=== PATIENT | female | born 1995 | race Caucasian/White ===

== ENCOUNTER 2021-09-04 08:27 | Outpatient (CLI) | payer OTHER | END 2021-09-04 08:28 | disposition home or self-care (01) | LOC: SCSMRI 08:27 | PROVIDERS: ATTEND Orthopaedic Surgery Hand Surgery | DX: S53.441A Ulnar collateral ligament sprain of right elbow, initial encounter (principal); R93.89 Abnormal findings on diagnostic imaging of other specified body structures; N83.202 Unspecified ovarian cyst, left side; N83.292 Other ovarian cyst, left side ==

== ENCOUNTER 2021-09-15 14:55 | Outpatient (CLI) | payer OTHER | END 2021-09-15 14:56 | disposition home or self-care (01) | LOC: TBSIIMAG 14:55 | PROVIDERS: ATTEND Orthopaedic Surgery Hand Surgery | DX: S53.441A Ulnar collateral ligament sprain of right elbow, initial encounter (principal) ==

== ENCOUNTER 2021-10-27 14:31 | Outpatient (CLI) | payer BC ==
[2021-10-27 15:14] LABS: #Basophils 0.1 10x3/uL (0.0-0.2); #Eosinphils 0.1 10x3/uL (0.0-0.5); #Monocytes 0.6 10x3/uL (0.0-1.1); #Neutrophils 6.8 10x3/uL (1.5-8.4); %Basophils 0.8 % (0.0-2.0); %Eosinophils 1.2 % (0.0-6.0); %Lymphocytes 27.4 % (18.0-47.0); %Monocytes 6.1 % (0.0-10.0); %Neutrophils 64.2 % (40.0-75.0); Hemoglobin 13.1 g/dL (12.0-15.5); Mean Corpuscular HGB CONC 33.1 g/dL (32.0-36.0); Mean Corpuscular Hemoglobin 30.8 pg (27.0-33.0); Mean Platelet Volume 9.1 fl (7.4-10.4); Platelet Count 310 10x3/uL (150-450); RBC Distribution Width 11.9 % (11.5-14.5); Red Blood Cell (RBC) Count 4.26 10x6/uL (3.90-5.03); White Blood Cell (WBC) Count 10.5 10x3/uL (3.5-10.5)
[2021-10-28 00:05] LABS: SARS-CoV-2 PCR by NAA Not Detected (NotDetected)
== END 2021-10-27 14:32 | disposition home or self-care (01) ==
LOC: LABBT 14:31
PROVIDERS: ATTEND Orthopaedic Surgery Hand Surgery
DX: Z01.812 Encounter for preprocedural laboratory examination (principal); S63.601A Unspecified sprain of right thumb, initial encounter; Z20.822 Contact with and (suspected) exposure to COVID-19
CPT/HCPCS: 85025; U0003; U0005

== ENCOUNTER 2021-10-30 08:06 | Day surgery (SDC) | payer BC ==
[2021-10-21 10:41] VITALS: BMI 29.0
[2021-10-30] MEDS ORDERED: Midazolam HCl 2 mg/2 ml Vial ONE (09:49)
[2021-10-30] MEDS ORDERED: Betamet Acet/Betamet Na Ph 30 MG/5 ML VIAL ONE (12:11)
[2021-10-30] MEDS ORDERED: Bupivacaine PF 0.5% 30 ML VIAL ONE (12:11)
[2021-10-30] MEDS ORDERED: Bacitracin Zinc Ointment 30 gm TUBE ONE (12:11)
[2021-10-30] MEDS ORDERED: Neomycin-Polymyxin 1 ML AMP ONE (12:11)
[2021-10-30] MEDS ORDERED: Fentanyl 250 MCG/5 ML VIAL ONE (12:12)
[2021-10-30] MEDS ORDERED: Ketorolac Tromethamine 30 MG/ML VIAL ONE (12:44)
[2021-10-30] MEDS ORDERED: Dexamethasone 20 MG/5 ML VIAL ONE (12:44)
[2021-10-30] MEDS ORDERED: PROPOFOL 200 MG/20 ML VIAL ONE (12:44)
[2021-10-30] MEDS ORDERED: Lidocaine 1% PF 5 ML VIAL ONE (12:44)
[2021-10-30] MEDS ORDERED: Ropivacaine 0.5% HCl/PF (150 MG/30 ML VIAL) ONE (12:44)
[2021-10-30] MEDS ORDERED: Ondansetron PF 4 MG/2 ML Vial ONE (12:44)
== END 2021-10-30 15:50 | disposition home or self-care (01) ==
LOC: SDC 08:06
PROVIDERS: ATTEND Orthopaedic Surgery Hand Surgery
PROC: 3E0T3BZ Introduction of Anesthetic Agent into Peripheral Nerves and Plexi, Percutaneous Approach (ICD-10-PCS; principal; 2021-10-30)
PROC: 0LS70ZZ Reposition Right Hand Tendon, Open Approach (ICD-10-PCS; principal; 2021-10-30)
DX: S63.641A Sprain of metacarpophalangeal joint of right thumb, initial encounter (principal); Z79.899 Other long term (current) drug therapy; X50.1XXA Overexertion from prolonged static or awkward postures, initial encounter
CPT/HCPCS: 76000; C1713; J0702; J1100; J1885; J2250; J2405; J2704; J2795; J3010; S0020